=== PATIENT | female | born 1995 | race Caucasian/White ===

== ENCOUNTER 2017-01-17 11:19 | Emergency (ER) | payer MEDICAID ==
[2017-01-17 11:58] LABS: BASOPHILS 0.1 % (0-2); EOSINOPHILS 3.1 % (0-7); HEMATOCRIT 30.7 % (36.0-48.0); HEMOGLOBIN 10.1 g/dL (12-16); IMMATURE GRANULOCYTES 0.3 % (0-5); LYMPHOCYTES 27.8 % (15-50); MCH 28.1 pg (26.0-34.0); MCHC 32.9 g/dL (31.0-37.0); MCV 85.3 fL (80.0-100.0); MEAN PLATELET VOLUME 9.5 fL (7.4-10.4); NEUTROPHILS 60.7 % (40-80); PLATELET COUNT 336 10x3/uL (130-400); RDW 14.5 % (11.5-14.5); WBC 6.7 10x3/uL (4.8-10.8)
[2017-01-17 12:11] LABS: UDS - AMPHET NEGATIVE QUAL (NEGATIVE); UDS - BARB NEGATIVE QUAL (NEGATIVE); UDS - BENZO NEGATIVE QUAL (NEGATIVE); UDS - COCAINE NEGATIVE QUAL (NEGATIVE); UDS - OPIATE NEGATIVE QUAL (NEGATIVE); UDS - PCP NEGATIVE QUAL (NEGATIVE); UDS - THC POSITIVE QUAL (NEGATIVE)
[2017-01-17 12:14] LABS: APPEARANCE HAZY (CLEAR); COLOR YELLOW (YELLOW); HCG SERUM POSITIVE (NEGATIVE)
[2017-01-17 12:15] LABS: BILIRUBIN NEGATIVE (NEGATIVE); GLUCOSE NEGATIVE (NEGATIVE); KETONE NEGATIVE (NEGATIVE); NITRITE NEGATIVE (NEGATIVE); PROTEIN NEGATIVE (NEGATIVE); UROBILINOGEN NORMAL (NORMAL)
[2017-01-17 12:16] LABS: BACTERIA MODERATE /hpf (NONE SEEN); EPITHELIAL CELLS 0-5 /hpf (0-5); RED CELLS - URINE NONE SEEN /hpf (0-5); WHITE CELLS - URINE 0-5 /hpf (0-5)
== END 2017-01-17 13:50 | disposition home or self-care (01) ==
LOC: D.ER 11:19
PROVIDERS: Emergency Medicine; Nurse Practitioner Family
DX: O23.592 Infection of other part of genital tract in pregnancy, second trimester (principal); N76.0 Acute vaginitis; B96.89 Other specified bacterial agents as the cause of diseases classified elsewhere; Z3A.20 20 weeks gestation of pregnancy; R10.30 Lower abdominal pain, unspecified

== ENCOUNTER 2017-06-01 06:24 | Inpatient (IN) | payer MEDICAID ==
[2017-06-01] VITALS (18 sets, daily range): BP systolic 103–137; BP diastolic 55–77; Ht 154.9 cm; Wt 87.5 kg
[~2017-06-01] VITALS: Ht 154.9 cm; Wt 87.5 kg
[2017-06-01] MEDS ORDERED: ACETAMINOPHEN325 MG (07:00)
[2017-06-01 07:36] LABS: HEMATOCRIT 24.4 % (36.0-48.0); MCH 22.3 pg (26.0-34.0); MCHC 30.3 g/dL (31.0-37.0); MCV 73.5 fL (80.0-100.0); MEAN PLATELET VOLUME 9.6 fL (7.4-10.4); RBC 3.32 10x6/uL (4.00-5.40); RDW 17.9 % (11.5-14.5); WBC 6.9 10x3/uL (4.8-10.8)
[2017-06-01 07:45] LABS: HEMOGLOBIN 7.4 g/dL (12-16)
[2017-06-01 10:41] LABS: HIV 1 & 2- RAPID SCREEN NEGATIVE (NEGATIVE)
[2017-06-01 12:47] LABS: UDS - AMPHET NEGATIVE QUAL (NEGATIVE); UDS - BARB NEGATIVE QUAL (NEGATIVE); UDS - BENZO NEGATIVE QUAL (NEGATIVE); UDS - COCAINE NEGATIVE QUAL (NEGATIVE); UDS - OPIATE POSITIVE QUAL (NEGATIVE); UDS - PCP NEGATIVE QUAL (NEGATIVE); UDS - THC POSITIVE QUAL (NEGATIVE)
[2017-06-01 15:29] LABS: BASOPHILS 0.2 % (0-2); EOSINOPHILS 0.2 % (0-7); HEMATOCRIT 21.6 % (36.0-48.0); IMMATURE GRANULOCYTES 0.3 % (0-5); MCH 21.9 pg (26.0-34.0); MCHC 30.1 g/dL (31.0-37.0); MCV 72.7 fL (80.0-100.0); MEAN PLATELET VOLUME 9.8 fL (7.4-10.4); MONOCYTES 7.3 % (2-11); PLATELET COUNT 300 10x3/uL (130-400); RBC 2.97 10x6/uL (4.00-5.40)
[2017-06-01 15:45] LABS: WBC 10.8 10x3/uL (4.8-10.8)
[2017-06-01 15:46] LABS: HEMOGLOBIN 6.5 g/dL (12-16)
[2017-06-02 00:02] VITALS: BP 111/72
[2017-06-02 03:19] LABS: BASOPHILS 0.2 % (0-2); EOSINOPHILS 1.5 % (0-7); HEMATOCRIT 24.9 % (36.0-48.0); IMMATURE GRANULOCYTES 0.4 % (0-5); LYMPHOCYTES 27.9 % (15-50); MCH 24.1 pg (26.0-34.0); MCHC 32.1 g/dL (31.0-37.0); MEAN PLATELET VOLUME 9.6 fL (7.4-10.4); PLATELET COUNT 251 10x3/uL (130-400); RBC 3.32 10x6/uL (4.00-5.40); RDW 17.8 % (11.5-14.5); WBC 11.7 10x3/uL (4.8-10.8)
[2017-06-02 05:14] LABS: RAPID PLASMA REAGIN Non Reactive (Non Reactive)
[2017-06-02 07:56] VITALS: BP 131/80
[2017-06-02 08:18] LABS: HEPATITIS C ANTIBODY <0.1 (0.0-0.9)
[2017-06-02 13:15] LABS: BASOPHILS 0.2 % (0-2); EOSINOPHILS 1.2 % (0-7); HEMATOCRIT 27.2 % (36.0-48.0); HEMOGLOBIN 8.6 g/dL (12-16); IMMATURE GRANULOCYTES 0.4 % (0-5); LYMPHOCYTES 20.2 % (15-50); MCH 24.1 pg (26.0-34.0); MCHC 31.6 g/dL (31.0-37.0); MCV 76.2 fL (80.0-100.0); MEAN PLATELET VOLUME 9.9 fL (7.4-10.4); MONOCYTES 4.2 % (2-11); NEUTROPHILS 73.8 % (40-80); PLATELET COUNT 265 10x3/uL (130-400); RBC 3.57 10x6/uL (4.00-5.40); RDW 17.7 % (11.5-14.5); WBC 10.6 10x3/uL (4.8-10.8)
[2017-06-02 15:21] LABS: RUBELLA IGG 1.78 index (Immune >0.99)
[2017-06-02 16:18] VITALS: BP 115/71
[2017-06-02 19:19] VITALS: BP 126/85
[2017-06-03 07:52] VITALS: BP 122/77
[2017-06-03 12:20] VITALS: BP 139/79
[2017-06-03] MEDS ORDERED: HYDROCODON-ACE1 EAC7 PO (14:55)
[2017-06-03] MEDS ORDERED: IBUPROFEN600 MG PO (14:56)
[2017-06-05 20:08] LABS: UDSC - AMPHET Negative ng/mL (Cutoff=1000); UDSC - BARB Negative ng/mL (Cutoff=300); UDSC - BENZO Negative ng/mL (Cutoff=300); UDSC - COC Negative ng/mL (Cutoff=300); UDSC - METH Negative ng/mL (Cutoff=300); UDSC - OPIATES Negative (Cutoff=300); UDSC - PCP Negative ng/mL (Cutoff=25); UDSC - PROPOXY Negative ng/mL (Cutoff=300); UDSC - THC Positive (Cutoff=50)
== END 2017-06-03 15:30 | disposition home or self-care (01) | DRG 775 ==
LOC: D.LD 06:24
PROVIDERS: Obstetrics & Gynecology
PROC: 10E0XZZ Delivery of Products of Conception, External Approach (ICD-10-PCS; principal; 2017-06-01)
PROC: 0HQ9XZZ Repair Perineum Skin, External Approach (ICD-10-PCS; 2017-06-01)
DX: O62.3 Precipitate labor (principal); O66.0 Obstructed labor due to shoulder dystocia; O42.92 Full-term premature rupture of membranes, unspecified as to length of time between rupture and onset of labor; O69.81X0 Labor and delivery complicated by cord around neck, without compression, not applicable or unspecified; O99.334 Smoking (tobacco) complicating childbirth; P03.82 Meconium passage during delivery; O09.33 Supervision of pregnancy with insufficient antenatal care, third trimester; Z3A.40 40 weeks gestation of pregnancy; Z37.0 Single live birth

== ENCOUNTER 2017-07-24 08:46 | Emergency (ER) | payer MEDICAID ==
[2017-06-01 07:51] VITALS: BMI 36.5
[~2017-07-24 08:46] MED LIST: ACETAMINOPHEN325 MG; HYDROCODON-ACE1 EAC7 PO; IBUPROFEN600 MG PO
[2017-07-24 09:46] LABS: HEMATOCRIT 33.9 % (36.0-48.0); HEMOGLOBIN 11.1 g/dL (12-16); MCH 25.8 pg (26.0-34.0); MCHC 32.7 g/dL (31.0-37.0); MCV 78.7 fL (80.0-100.0); MEAN PLATELET VOLUME 9.1 fL (7.4-10.4); PLATELET COUNT 247 10x3/uL (130-400); RBC 4.31 10x6/uL (4.00-5.40); WBC 3.9 10x3/uL (4.8-10.8)
[2017-07-24 09:54] LABS: HCG URINE NEGATIVE (NEGATIVE)
[2017-07-24 10:01] LABS: ALBUMIN 3.5 g/dL (3.4-5.0); ALKALINE PHOSPHATASE 74 U/L (46-116); ALT (SGPT) 34 U/L (10-68); BILIRUBIN - TOTAL 0.58 mg/dL (0.2-1.3); CALC OSMOLALITY 275 mosm/kg (275-300); CALCIUM 8.9 mg/dL (8.5-10.1); CHLORIDE - SERUM 105 mmol/L (98-107); CREATININE - SERUM 0.8 mg/dL (0.6-1.3); GLUCOSE 96 mg/dL (74-106); POTASSIUM - SERUM 4.1 mmol/L (3.5-5.1); PROTEIN - SERUM 7.4 g/dL (6.4-8.2); SODIUM 137 mmol/L (136-145); UREA NITROGEN 19 mg/dL (7-18); eGFR NON AFRICAN AMERICAN > 90 mL/min (90-120)
[2017-07-24 10:20] LABS: TROPONIN-I < 0.017 ng/mL (0.000-0.060)
[2017-07-24 10:23] LABS: AMYLASE - SERUM 94 U/L (25-115); BASOPHILS 1 % (0-2); EOSINOPHILS 5 % (0-7); LIPASE 290 U/L (73-393); LYMPHOCYTES 63 % (15-50); MONOCYTES 8 % (2-11); NEUTROPHILS 22 % (40-80)
[2017-07-24 10:24] LABS: PLATELET ESTIMATE NORMAL
== END 2017-07-24 11:10 | disposition home or self-care (01) ==
LOC: D.ER 08:46
PROVIDERS: Family Medicine
DX: M94.0 Chondrocostal junction syndrome [Tietze] (principal)